=== PATIENT | male | born 1985 | race Caucasian/White ===

== ENCOUNTER 2020-06-24 09:01 | Emergency (ER) | payer SELFPAY ==
[~2020-06-24] VITALS: Ht 177 cm; Wt 85.0 kg
--- NOTE | 2020-06-24 09:10 | ED General ---
General Stated Complaint: CHEST INJ History of Present Illness Date Seen by Provider: Jun 24, 2020 Time Seen by Provider: 09:10 Initial Comments 34-year-old male presents with left chest wall injury. 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 Complains of slip sore but now has pain in his chest wall. He started some ibuprofen yesterday. He reports pain with deep breath. He denies any other injuries, fevers chills cough. Allergies and Home Medications Allergies Coded Allergies: No Known Drug Allergies (Unverified , 06/24/20) Patient Home Medication List Home Medication List Reviewed: Yes Review of Systems Review of Systems Constitutional: No chills, No fever EENTM: no symptoms reported Respiratory: No cough, No short of breath Cardiovascular: see HPI; No palpitations Gastrointestinal: No abdominal pain, No constipation, No diarrhea, No nausea, No vomiting Musculoskeletal: no symptoms reported Skin: no symptoms reported Psychiatric/Neurological: No Symptoms Reported Hematologic/Lymphatic: No Symptoms Reported Past Pbohoky-Nioqim-Pprgjo Hx Past Med/Social Hx: Reviewed Nursing Past Med/Soc Hx Patient Social History Recent Foreign Travel: No Contact w/Someone Who Travel: No Physical Exam Vital Signs Vital Signs - First Documented 06/24/20 09:15 Temp 36.1 Pulse 96 Resp 16 B/P (MAP) 159/91 (113) Pulse Ox 99 O2 Delivery Room Air Capillary Refill : Height, Weight, BMI Height: '" Weight: lbs. oz. 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 Norm as Tested Progress/Results/Core Measures Suspected Sepsis SIRS Temperature: Pulse: Respiratory Rate: Blood Pressure / Mean: Results/Orders My Orders Orders - DENG,PRISCA L DO Ribs/Unilateral With Chest (06/24/20 09:13) Ketorolac Injection (Toradol Injection) (06/24/20 09:13) Orphenadrine Inj (Ed Only) (Norflex Inje (06/24/20 09:13) Vital Signs/I&O 06/24/20 09:15 Temp 36.1 Pulse 96 Resp 16 B/P (MAP) 159/91 (113) Pulse Ox 99 O2 Delivery Room Air Capillary Refill : Diagnostic Imaging Diagonstic Imaging: Xray Plain Films/CT/US/NM/MRI: chest Comments [facility], [place] NAME: RAYA HERNANDEZ [facility] REC#: [id number] PT STATUS: REG ER : 1985 PHYSICIAN: PRISCA DENG DO ADMIT DATE: 06/24/20/ER FS Signed Date of Exam:06/24/20 RIBS/UNILATERAL WITH CHEST Indication: Puncture wound left chest PA chest and 3 oblique views of the left ribs are obtained Lungs are clear. There are no effusions or pneumothoraces. There are no displaced rib fracture seen. IMPRESSION: Negative chest and left ribs Dictated by: Dictated on workstation # [id number] Dict: 06/24/20929 Trans: 06/24/20930 [id number] Interpreted by: TABBY RIGGINS MD Departure Impression Primary Impression: Contusion of left chest wall Qualified Codes: S20.212A - Contusion of left front wall of thorax, initial encounter Disposition: 01 HOME, SELF-CARE Condition: Stable Departure-Patient Inst. Referrals: [facility] (PCP) Primary Care Physician NICOLE DESAI APRN (Family) Primary Care Physician Patient Instructions: Contusion (DC), Bruised Rib Add. Discharge Instructions: 4% topical lidocaine with menthol to affected area as directed on package Ice to affected area 3-4 times a day Scripts Naproxen (Naprosyn) 500 Mg Tablet 500 MG PO BID, #30 TAB 0 Refills Prov: PRISCA DENG DO 06/24/20 PRISCA DENG DO Jun 24, 2020 09:10
[2020-06-24] MEDS ORDERED: ORPHENADRINE 60 MG/2 ML (NORFLEX) AMP (ED ONLY) IM STA (09:13)
[2020-06-24] MEDS ORDERED: KETOROLAC 30 MG/ML VIAL IM STA (09:13)
[2020-06-24 09:15] VITALS: BP 159/91
--- NOTE | 2020-06-24 09:32 | Diagnostic Imaging Report ---
Indication: Puncture wound left chest PA chest and 3 oblique views of the left ribs are obtained Lungs are clear. There are no effusions or pneumothoraces. There are no displaced rib fracture seen. IMPRESSION: Negative chest and left ribs Dictated by: Dictated on workstation # [id number]
[2020-06-24] MEDS ORDERED: NAPR-1071 PO (09:39)
== END 2020-06-24 09:44 | disposition home or self-care (01) ==
LOC: ER FS 09:03
DX: S20.212A Contusion of left front wall of thorax, initial encounter (principal); F41.9 Anxiety disorder, unspecified; W23.1XXA Caught, crushed, jammed, or pinched between stationary objects, initial encounter
CPT/HCPCS: 71101

== ENCOUNTER 2020-08-29 10:48 | Emergency (ER) | payer SELFPAY ==
[~2020-08-29 10:48] MED LIST: NAPR-1071 PO
[2020-08-29] MEDS ORDERED: FLUORESCEIN (FLUOR-I-STRIPS) 1 MG STRP ONE (11:02)
[2020-08-29] MEDS ORDERED: TETRACAINE 0.5% OPHTH SOLN 4 ML BTL (SINGLE DOSE ONLY) ONE (11:02)
--- NOTE | 2020-08-29 11:42 | ED General ---
General Chief Complaint: Eye Problems Stated Complaint: LT EYE INJ History of Present Illness Date Seen by Provider: Aug 29, 2020 Time Seen by Provider: 11:00 Initial Comments Patient is a 34-year-old male who presents with foreign body sensation to left eye after exposure to sawdust 2 days ago. Patient was evaluated at the urgent care last night and had his eye irrigated and was prescribed an ointment. As the pharmacies were closed, the patient was unable to fill the ointment. Patient states he has a persistent foreign body sensation underneath his left eye with significant left eye pain and blurred vision. Timing/Duration: 4-6 Hours Severity: Moderate Allergies and Home Medications Allergies Coded Allergies: No Known Drug Allergies (Unverified , 06/24/20) Home Medications Naproxen 500 Mg Tablet, 500 MG PO BID Prescribed by: PRISCA DENG on 06/24/20 0957 Patient Home Medication List Home Medication List Reviewed: Yes Review of Systems Review of Systems Constitutional: see HPI EENTM: see HPI Respiratory: see HPI Cardiovascular: see HPI Past Ripuzbo-Exrazc-Ffytnw Hx Past Med/Social Hx: Reviewed Nursing Past Med/Soc Hx Patient Social History Alcohol Use: Occasionally Uses Smoking Status: Current Everyday Smoker Type Used: Cigarettes 2nd Hand Smoke Exposure: Yes Recent Hopitalizations: No Immunizations Up To Date Tetanus Booster (TDap): Unknown Seasonal Allergies Seasonal Allergies: No Past Medical History Surgeries: Yes (hernia repair ) Respiratory: No Cardiac: Yes (NON-COMPLIANT WITH LISINOPRIL) Hypertension Neurological: No Genitourinary: No Gastrointestinal: No Musculoskeletal: No Endocrine: No HEENT: No Cancer: No Psychosocial: No Integumentary: No Blood Disorders: No Physical Exam Vital Signs Capillary Refill : Height, Weight, BMI Height: '" Weight: lbs. oz. kg; 27.00 BMI Method: General Appearance: Anxious, Moderate Distress (Secondary to pain) Eyes: Left Eye Lid Inflammation, Left Eye Photophobia, Left Eye Other (Punctate foreign body located at 5 o'clock position with surrounding corneal abrasion); Bilateral Eye Normal Inspection, Bilateral Eye PERRL HEENT: Photophobia, Other Neck: Full Range of Motion, Carotid Bruit Focused Exam Sepsis Stage: Ruled Out Progress/Results/Core Measures Suspected Sepsis SIRS Temperature: Pulse: Respiratory Rate: Blood Pressure / Mean: Results/Orders My Orders Orders - VASQUEZ,WANG DO Tetracaine 0.5% Ophth Jasmin Sdv (Tetracai (08/29/20 11:02) Fluorescein Strips (Wiwiq-W-Qgketm) (08/29/20 11:02) Vital Signs/I&O Capillary Refill : Departure Communication (Admissions) Unable to remove foreign body. Patient to be seen by industrial relations director in office at 1 PM today Impression Primary Impression: Corneal abrasion Additional Impression: Corneal foreign body Disposition: HOME, SELF-CARE Condition: Stable Departure-Patient Inst. Decision time for Depature: 11:46 [place] [facility] [place] Primary Care Physician NICOLE DESAI APRN (Family) Primary Care Physician Patient Instructions: Foreign Body in Eye (DC), Corneal Abrasion ED Add. Discharge Instructions: Please follow-up with the eye doctor in his office today at 1 PM. All discharge instructions reviewed with patient and/or family. Voiced understanding. WANG VASQUEZ DO Aug 29, 2020 11:42
[2020-08-29 12:19] VITALS: BP 133/91
== END 2020-08-29 12:20 | disposition home or self-care (01) ==
LOC: EDUNIT# 10:48 → ER FS 10:50
DX: T15.02XA Foreign body in cornea, left eye, initial encounter (principal); I10 Essential (primary) hypertension; F17.210 Nicotine dependence, cigarettes, uncomplicated; Z91.14 Patient's other noncompliance with medication regimen; X58.XXXA Exposure to other specified factors, initial encounter
CPT/HCPCS: 99282

== ENCOUNTER 2021-05-04 15:29 | Emergency (ER) | payer BC, OTHER ==
[~2021-05-04] VITALS: Ht 175.3 cm; Wt 80.0 kg
[2021-05-04 15:34] VITALS: BP 151/103
[2021-05-04] MEDS ORDERED: BACL10TA PO (16:51)
[2021-05-04] MEDS ORDERED: OXYC1TAB11 PO (16:51)
[2021-05-04] MEDS ORDERED: IBUP-1780 PO (16:51)
--- NOTE | 2021-05-04 16:54 | ED Lower Extremity ---
General Chief Complaint: Lower Extremity Stated Complaint: RT LEG PAIN Nursing Triage Note: PT ARRIVED BY PRIVATE VEHICLE WITH CHIEF COMPLAINT OF RIGHT LEG/HIP PAIN. PAIN GOES THROUGH HIP TO ANKLE. PT HAS HAD THIS ISSUE FOR OVER 2 WEEKS. PT WAS SEEN AT [facility] A LITTLE OVER 2 WEEKS AGO AND WAS TOLD IT WAS SCIATIC NERVE. PT STATED HE JUST FINISHED HIS STEROID PACK/SHOT AND RAN OUT. Source: patient History of Present Illness Date Seen by Provider: May 04, 2021 Time Seen by Provider: 16:28 Initial Comments 35-year-old male presenting with complaints of pain in the right hip and leg the radiates all the way down to his foot. He has been seen [facility] for this few weeks ago. At that time you had x-rays and imaging done and was told that it was sciatica. He was given some steroids as well as pain medicine and advised to follow-up with Nicole Desai. Patient states he has tried several times to get a hold of nurse practitioner in the clinic but has not been able to get in touch with her. Today when he was at work his pain was severe enough that he left early and had to go home. As the pain was continued to be severe and he was out of any medication he came to the ED to be evaluated. He had been told he would need an MRI and spine evaluation if continued symptoms. He denies any loss of control of bowel or bladder. He denies any acute trauma or injury to cause his symptoms. He has no numbness or tingling in his extremities. Onset: other (over 2 weeks of symptoms) Severity: severe Pain/Injury Location: right hip (and radiates all the way down leg) Method of Injury: unknown Modifying Factors: Improves With Pain Medication (slightly) Allergies and Home Medications Allergies Coded Allergies: No Known Drug Allergies (Unverified , 06/24/20) Patient Home Medication List Home Medication List Reviewed: Yes Baclofen (Baclofen) 10 Mg Tablet, 10 MG PO TID PRN for muscle spasm/sciatica Prescribed by: FREDRICK OCHOA on 05/04/21 165 Ibuprofen (Ibuprofen) 800 Mg Tablet, 800 MG PO Q8H PRN for PAIN Prescribed by: FREDRICK OCHOA on 05/04/21 1651 Naproxen (Naprosyn) 500 Mg Tablet, 500 MG PO BID Prescribed by: PRISCA DENG on 06/24/20 0902 Oxycodone HCl/Acetaminophen (Oxycodone-Acetaminophen 5-325) 1 Each Tablet, 1 EACH PO Q6H PRN for PAIN-SEVERE (8-10) Prescribed by: FREDRICK OCHOA on 05/04/21 6143 Review of Systems Constitutional: No chills, No fever EENTM: no symptoms reported Respiratory: no symptoms reported Cardiovascular: no symptoms reported Gastrointestinal: no symptoms reported Genitourinary: no symptoms reported Musculoskeletal: see HPI Skin: No rash Psychiatric/Neurological: See HPI; Denies Headache, Denies Numbness, Denies Paresthesia Past Uugrsyx-Bykjrd-Bziama Hx Patient Social History Tobacco Use?: Yes Smoking Status: Current Everyday Smoker Substance use?: No Alcohol Use?: Yes Alcohol Frequency: Once in a while Immunizations Up To Date Tetanus Booster (TDap): Unknown First/Initial COVID19 Vaccinat: N/A Second COVID19 Vaccination Breezy: N/A COVID19 Vaccine 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 oz. kg; 26.00 BMI Method: General Appearance: WD/WN, moderate distress HEENT: PERRL/EOMI, pharynx normal Neck: non-tender, full range of motion, supple, normal inspection Cardiovascular: normal peripheral pulses, regular rate, rhythm Respiratory: chest non-tender, lungs clear, normal breath sounds Back: no CVA tenderness, no vertebral tenderness Hips: right hip pain (Tender to palpation of the SI joint. Complains of pain radiating all the way down his leg) Neurologic/Psychiatric: alert, oriented x 3 Skin: normal color, warm/dry Progress/Results/Core Measures Results/Orders Vital Signs/I&O 05/04/21 15:34 Temp 36.7 Pulse 102 Resp 16 B/P (MAP) 151/103 (119) Pulse Ox 99 O2 Delivery Room Air Blood Pressure Mean: 119 Progress Progress Note : Progress Note Advised patient that since he has already had imaging and it did not show anything as well as he has not had any new acute injury trend repeat imaging would likely still not show anything. I could try treating his pain and muscle spasms. Check back with the clinic and establish care with orthopedics or spine if continued problems. Try to set up an MRI. In the meantime will prescribe Percocet for severe pain, ibuprofen for inflammation, baclofen for muscle spasms and inflammation. Departure Impression Primary Impression: Sciatica of right side without back pain Disposition: HOME, SELF-CARE Condition: Stable Departure-Patient Inst. Decision time for Depature: 16:48 Referrals: [facility] (PCP) Primary Care Physician NICOLE DESAI APRN (Family) Primary Care Physician Patient Instructions: Sciatica ED, Sciatica Exercises Add. Discharge Instructions: Check with clinic or Orthopedics about getting seen and set up for MRI about your continued pain and symptoms. If you can not get in to see SENA Desai then you could try Orthopedics with Dr. Tran from [place] or a nurse practitioner that works with him, SENA Romero, here in [place]. The number to set up with Ravi Romero would be [phone] All discharge instructions reviewed with patient and/or family. Voiced understanding. Scripts Ibuprofen (Ibuprofen) 800 Mg Tablet 800 MG PO Q8H PRN for PAIN for 10 Days, #30 TAB 0 Refills Prov: FREDRICK OCHOA MD 05/04/21 Baclofen (Baclofen) 10 Mg Tablet 10 MG PO TID PRN for muscle spasm/sciatica for 10 Days, #30 TAB 0 Refills Prov: FREDRICK OCHOA MD 05/04/21 Oxycodone HCl/Acetaminophen (Oxycodone-Acetaminophen 5-325) 1 Each Tablet 1 EACH PO Q6H PRN for PAIN-SEVERE (8-10) MDD 6 for 5 Days, #20 TAB 0 Refills Prov: FREDRICK OCHOA MD 05/04/21 Work/School Note: Work Release Form Date Seen in the Emergency Department: May 04, 2021 Return to Work: May 05, 2021 Other Restrictions Listed Below: Light duty and to allow change position as needed for pain FREDRICK OCHOA MD May 04, 2021 16:54
== END 2021-05-04 17:02 | disposition home or self-care (01) ==
LOC: EDUNIT# 15:29 → ER FS 15:30
DX: M54.31 Sciatica, right side (principal); I10 Essential (primary) hypertension; F17.200 Nicotine dependence, unspecified, uncomplicated
CPT/HCPCS: 99281

== ENCOUNTER 2021-05-21 09:07 | Emergency (ER) | payer BC ==
[~2021-05-21 09:07] MED LIST changes: +BACL10TA PO; +IBUP-1780 PO; +OXYC1TAB11 PO
[2021-05-21 09:19] VITALS: BP 159/96
[2021-05-21] MEDS ORDERED: OXYC1TAB11 PO (09:26)
[2021-05-21] MEDS ORDERED: BACL10TA PO (09:26)
[2021-05-21] MEDS ORDERED: IBUP-1780 PO (09:26)
--- NOTE | 2021-05-21 09:28 | ED Lower Extremity ---
General Chief Complaint: Lower Extremity Stated Complaint: RIGHT LEG PAIN Nursing Triage Note: Patient reports he has had pain in his right buttock radiating down his right leg for nearly 1 month. He reports he has an appointment to see his PCP on Sunday. Source: patient, old records History of Present Illness Date Seen by Provider: May 21, 2021 Time Seen by Provider: 09:11 Initial Comments 35 yo male presenting with complaint of pain to right buttock going down back of his right leg. He had xrays done in April at [facility] for evaluating his pain. He denies any injury or trauma, before the pain started or since being seen here in ED. He was seen here in the ED on 04 May 2021 and had some additional medicine for pain, spsasms and inflammation. He reports calling right after his ED visit to set up appointment with Nurse Practitioner Nicole Desai. He has appointment on SundayMay 23. He ran out of the medicine from his last ED visit and felt he needed something for pain this weekend. He denies loss of bowel or bladder control. He has increased pain with palpation and pressure over the Right SI joint in his buttock on right side. He describes the pain as shooting all the way down his leg. He did not want to do CT scan or repeat films here in the ED since he has appointment Sunday. He may need MRI to evaluate his nerves and look for bulging disc or pinched nerve to be complicating his sciatica pain. Severity: severe Pain/Injury Location: right hip (radiating down leg) Method of Injury: unknown Modifying Factors: Worse With Movement; Improves With Pain Medication Allergies and Home Medications Allergies Coded Allergies: No Known Drug Allergies (Unverified , 06/24/20) Patient Home Medication List Home Medication List Reviewed: Yes Baclofen (Baclofen) 10 Mg Tablet, 10 MG PO TID PRN for muscle spasm/sciatica Prescribed by: FREDRICK OCHOA on 05/21/21925 Ibuprofen (Ibuprofen) 800 Mg Tablet, 800 MG PO Q8H PRN for PAIN Prescribed by: FREDRICK OCHOA on 05/21/21925 Naproxen (Naprosyn) 500 Mg Tablet, 500 MG PO BID Prescribed by: PRISCA DENG on 06/24/20 0939 Oxycodone HCl/Acetaminophen (Oxycodone-Acetaminophen 5-325) 1 Each Tablet, 1 EACH PO Q6H PRN for PAIN-SEVERE (8-10) Prescribed by: FREDRICK OCHOA on 05/21/2127 Review of Systems Constitutional: no symptoms reported EENTM: no symptoms reported Respiratory: no symptoms reported Cardiovascular: no symptoms reported Gastrointestinal: no symptoms reported Genitourinary: no symptoms reported Musculoskeletal: see HPI Skin: No rash Psychiatric/Neurological: Tingling (right leg tingles and has intermittent numbness) Past Sfjvdkv-Nyzmoc-Djmgol Hx Immunizations Up To Date Tetanus Booster (TDap): Unknown First/Initial COVID19 Vaccinat: N/A Second COVID19 Vaccination Breezy: N/A Seasonal Allergies Seasonal Allergies: No Past Medical History Surgeries: Yes (hernia repair ) Respiratory: No Cardiac: Yes (NON-COMPLIANT WITH LISINOPRIL) Hypertension Neurological: No Genitourinary: No Gastrointestinal: No Musculoskeletal: No Endocrine: No HEENT: No Cancer: No Psychosocial: No Integumentary: No Blood Disorders: No Physical Exam Vital Signs Vital Signs - First Documented 05/21/21 09:19 Temp 36.8 Pulse 102 Resp 18 B/P (MAP) 159/96 (117) Pulse Ox 99 O2 Delivery Room Air Capillary Refill : Less Than 3 Seconds Height, Weight, BMI Height: '" Weight: lbs. oz. kg; 26.00 BMI Method: General Appearance: moderate distress Cardiovascular: normal peripheral pulses Hips: right hip pain (tender to palpation over SI joint on right side) Neurologic/Tendon: normal sensation, normal motor functions, normal tendon functions Neurologic/Psychiatric: alert, oriented x 3 Skin: normal color, warm/dry Progress/Results/Core Measures Results/Orders Vital Signs/I&O 05/21/21 09:19 Temp 36.8 Pulse 102 Resp 18 B/P (MAP) 159/96 (117) Pulse Ox 99 O2 Delivery Room Air Blood Pressure Mean: 117 Progress Progress Note : Progress Note Discussed option of performing CT scan to get finer detail than plain films he had done at [facility] in April. Pt wanted to wait and see clinic on Sunday to see about arranging any imaging from them. He refused pain shot in the ED as he has had previous shots and did not want another one today. Will refill muscle relaxer, Ibuprofen and a few Percocet to help until he is seen Sunday with Nurse Practitioner Pao. Advised to return or be seen immediately if having loss of bowel or bladder control. Departure Impression Primary Impression: Sciatica of right side without back pain Disposition: HOME, SELF-CARE Condition: Stable Departure-Patient Inst. Decision time for Depature: 09:28 Referrals: [facility] (PCP) Primary Care Physician NICOLE DESAI APRN (Family) Primary Care Physician Patient Instructions: Sciatica ED, Sciatica Exercises Add. Discharge Instructions: Keep appointment on SundayMay 23 with Nurse Practitioner Pao. Use pain medicine, muscle relaxer and anti-inflammatory medicines to help with your symptoms until you see her and work with clinic to control your symptoms and further evaluate your sciatica Consider taking Miralax or laxative to help prevent constipation from the narcotic pain medicine. All discharge instructions reviewed with patient and/or family. Voiced understanding. Scripts Ibuprofen (Ibuprofen) 800 Mg Tablet 800 MG PO Q8H PRN for PAIN for 10 Days, #30 TAB 0 Refills Prov: FREDRICK OCHOA MD 05/21/21 Baclofen (Baclofen) 10 Mg Tablet 10 MG PO TID PRN for muscle spasm/sciatica for 10 Days, #30 TAB 0 Refills Prov: FREDRICK OCHOA MD 05/21/21 Oxycodone HCl/Acetaminophen (Oxycodone-Acetaminophen 5-325) 1 Each Tablet 1 EACH PO Q6H PRN for PAIN-SEVERE (8-10) MDD 6 for 5 Days, #20 TAB 0 Refills Prov: FREDRICK OCHOA MD 05/21/21 Work/School Note: Work Release Form Date Seen in the Emergency Department: May 21, 2021 Return to Work: May 24, 2021 Restrictions: No Restrictions FREDRICK OCHOA MD May 21, 2021 09:28
== END 2021-05-21 09:29 | disposition home or self-care (01) ==
LOC: EDUNIT# 09:07 → ER FS 09:10
DX: M54.31 Sciatica, right side (principal); I10 Essential (primary) hypertension
CPT/HCPCS: 99281

== ENCOUNTER 2023-06-10 21:14 | Emergency (ER) | payer SELFPAY ==
[2023-06-10] MEDS ORDERED: LIDOCAINE 1% INJ 20 ML VIAL INJ STA (21:24)
[2023-06-10] MEDS ORDERED: Tetanus/Diphtheria/Pertussis (Acell) ADULT Vaccine 0.5 ML IM ONE (21:30)
--- NOTE | 2023-06-10 21:40 | ED Upper Extremity ---
General Chief Complaint: Laceration Stated Complaint: LEFT HAND INJ Source: patient History of Present Illness Date Seen by Provider: Jun 10, 2023 Time Seen by Provider: 21:17 Initial Comments 37-year-old male presenting with complaints of pain and laceration to the left index finger. He was cutting a steak and cut into his finger with a fillet knife. He states its been more than 5 years for his last tetanus booster. He has normal sensation and movement. He has bleeding controlled with pressure. He denies other injuries Onset: just prior to arrival Severity: moderate Pain/Injury Location: left 2nd finger Method of Injury: incised Modifying Factors: Worse With Movement Allergies and Home Medications Allergies Coded Allergies: No Known Drug Allergies (Unverified , 06/24/20) Patient Home Medication List Home Medication List Reviewed: Yes Baclofen (Baclofen) 10 Mg Tablet, 10 MG PO TID PRN for muscle spasm/sciatica Prescribed by: FREDRICK OCHOA on 05/21/21 09 Ibuprofen (Ibuprofen) 800 Mg Tablet, 800 MG PO Q8H PRN for PAIN Prescribed by: FREDRICK OCHOA on 05/21/21 09 Naproxen (Naprosyn) 500 Mg Tablet, 500 MG PO BID Prescribed by: PRISCA DENG on 06/24/20 0939 Oxycodone HCl/Acetaminophen (Oxycodone-Acetaminophen 5-325) 1 Each Tablet, 1 EACH PO Q6H PRN for PAIN-SEVERE (8-10) Prescribed by: FREDRICK OCHOA on 05/21/21 0927 Review of Systems Constitutional: No chills, No fever EENTM: no symptoms reported Respiratory: no symptoms reported Cardiovascular: no symptoms reported Gastrointestinal: no symptoms reported Genitourinary: no symptoms reported Musculoskeletal: see HPI Skin: see HPI Psychiatric/Neurological: Denies Numbness, Denies Tingling Past Fogloqx-Lleaxi-Gessdi Hx Immunizations Up To Date Tetanus Booster (TDap): Unknown First/Initial COVID19 Vaccinat: N/A Second COVID19 Vaccination Breezy: N/A Third COVID19 Vaccination Date: N/A Seasonal Allergies Seasonal Allergies: No Past Medical History Surgeries: Yes (hernia repair ) Respiratory: No Cardiac: Yes (NON-COMPLIANT WITH LISINOPRIL) Hypertension Neurological: No Genitourinary: No Gastrointestinal: No Musculoskeletal: No Endocrine: No HEENT: No Cancer: No Psychosocial: No Integumentary: No Blood Disorders: No Physical Exam Vital Signs Vital Signs - First Documented 06/10/23 21:19 Temp 35.5 Pulse 106 Resp 16 B/P (MAP) 159/101 (120) Pulse Ox 98 O2 Delivery Room Air Capillary Refill : Height, Weight, BMI Height: '" Weight: lbs. oz. kg; 26.00 BMI Method: General Appearance: WD/WN, mild distress Cardiovascular: normal peripheral pulses Hand: normal ROM, Left, laceration (Flap laceration to the distal left index finger), soft tissue tenderness Neurologic/Tendon: normal sensation, normal motor functions, normal tendon functions Neurologic/Psychiatric: alert, oriented x 3 Skin: normal color, warm/dry Procedures/Interventions Wound Location: Upper Extremities (Left index finger) Wound Length (cm): 2.2 Wound's Depth, Shape: flap Wound Explored: clean Anesthesia: 1% Lidocaine Volume Anesthetic (ccs): 5 Suture: Ethlion Suture Size: 4-0 Number of Sutures: 3 Sterile Dressing Applied?: Yes Progress After obtaining verbal consent from the patient the wound was cleaned with chlorhexidine scrub soap and sterile water. A total of 3 mL of 1% plain lidocaine was infiltrated for anesthetic effect and a digital ring block. Wound was further cleaned with chlorhexidine scrub soap and sterile water. A turnicot was placed to help with hemostasis and anesthetic effect. Wound was repaired using 4-0 Ethilon for total of 3 simple interrupted stitches. Patient tolerated procedure well without any immediate complication. Counseled on follow-up and return precautions and advised to have the stitches removed in 10 to 14 days or be seen sooner if concerns for infection. A clean sterile dressing was applied prior to discharge. Progress/Results/Core Measures Results/Orders My Orders Orders - FREDRICK OCHOA MD Dipht/Pertuss(Acell)/Tet Adult (Dipht/Pe (06/10/23 21:30) Lidocaine 1% Inj 20 Ml (Xylocaine 1% Inj (06/10/23 21:24) Suture Set At Bedside (06/10/23 21:24) Wound Dressing-Ed (06/10/23 21:24) Medications Given in ED Current Medications Medications Dose Ordered Sig/Ryan Route Start Time Stop Time Status Last Admin Dose Admin Diphtheria/ Tetanus/Acell Pertussis 0.5 ml ONCE ONCE IM 06/10/23 21:30 06/10/23 21:31 DC 06/10/23 21:38 0.5 ML Vital Signs/I&O 06/10/23 21:19 Temp 35.5 Pulse 106 Resp 16 B/P (MAP) 159/101 (120) Pulse Ox 98 O2 Delivery Room Air Progress Progress Note : Progress Note Update tetanus booster. Verbal consent obtained for repairing flap laceration to the left index finger. Will place a digital ring block for anesthetic effect with 1% plain lidocaine. Departure Impression Primary Impression: Laceration of left index finger w/o foreign body w/o damage to nail Qualified Codes: S61.211A - Laceration without foreign body of left index finger without damage to nail, initial encounter Disposition: HOME, SELF-CARE Condition: Stable Departure-Patient Inst. Decision time for Depature: 22:14 Referrals: [facility] (PCP) Primary Care Physician NICOLE DESAI APRN (Family) Primary Care Physician Patient Instructions: Laceration Repair With Stitches ED Add. Discharge Instructions: Keep dressing on clean and dry for the first 24 hours. After that you may remove the dressing and wash with soap and water but do not soak the wound. Keep the wound covered if it might get dirty. Follow-up either here in the emergency department or in the clinic in 10 to 14 days for removal of the stitches. Be seen sooner if having worsening problems or signs of infection such as pus draining from the wound, redness streaking up your finger and hand, fever over 101 Fahrenheit All discharge instructions reviewed with patient and/or family. Voiced understanding. FREDRICK OCHOA MD Jun 10, 2023 21:40
[2023-06-10 22:45] VITALS: BP 165/93
== END 2023-06-10 22:45 | disposition home or self-care (01) ==
LOC: EDUNIT# 21:14 → ER FS 21:16
DX: S61.211A Laceration without foreign body of left index finger without damage to nail, initial encounter (principal); Z23 Encounter for immunization; W26.0XXA Contact with knife, initial encounter
CPT/HCPCS: 12001; 90471; 90715